=== PATIENT | female | born 1945 | race Caucasian/White ===

== ENCOUNTER → 2016-08-08 | Outpatient (CLI) | payer MEDICARE ==
--- NOTE | 2016-08-08 13:00 | REP ---
PELVIC ULTRASOUND: Real-time sonographic evaluation of the pelvis is performed utilizing transabdominal and endovaginal technique. The bladder measuring 11.5 x 4.9 x 9.8 cm. The uterus measures 8.3 x 4.3 x 6.2 cm. Endometrial thickness is 12 mm. This is thickened in a patient postmenopausal. The right ovary is not visualized. In the left adnexa, there is a complex mass measuring 6.3 x 4.7 x 4.6 cm compatible with dermoid as seen on prior CT of 01/01/2014. There is no evidence of torsion. No free fluid is seen. There is a 5 mm hypoechoic nodular area in the endometrium which could represent a submucosal fibroid or polyp. IMPRESSION: Thickened endometrium. The patient is postmenopausal and therefore endometrial sampling is recommended to evaluate for possible endometrial neoplasm. 5 mm hypoechoic nodule in the endometrium may represent a fibroid or polyp. Complex left adnexal mass compatible with dermoid as seen on prior CT of 01/01/2014. Signed by Wesley Heredia MD 08/08/2016 04:16 P
== END ==
LOC: M RAD 10:42
PROVIDERS: ATTEND Nurse Practitioner Family
DX: D27.9 Benign neoplasm of unspecified ovary (principal); Z80.0 Family history of malignant neoplasm of digestive organs

== ENCOUNTER → 2016-11-07 | Outpatient (REF) | payer MEDICARE ==
[2016-11-07 12:23] LABS: ALBUMIN 3.2 GM/DL (3.2-5.2); ALBUMIN/GLOBULIN RATIO 1.03 (1.00-1.93); ALKALINE PHOSPHATASE 91 U/L (45-117); ALT/SGPT 21 U/L (12-78); ANION GAP 7 MEQ/L (8-16); AST/SGOT 11 U/L (15-37); BILIRUBIN,TOTAL 0.4 MG/DL (0.2-1.0); BLOOD UREA NITROGEN 21 MG/DL (7-18); CALCIUM LEVEL 8.6 MG/DL (8.8-10.2); CARBON DIOXIDE LEVEL 27 MEQ/L (21-32); CHLORIDE LEVEL 108 MEQ/L (98-107); CHOLESTEROL LEVEL 191 MG/DL (<200); CREATININE FOR GFR 0.91 MG/DL (0.55-1.02); GLOMERULAR FILTRATION RATE > 60.0 (>39); GLUCOSE, FASTING 90 MG/DL (83-110); POTASSIUM SERUM 4.1 MEQ/L (3.5-5.1); SODIUM LEVEL 142 MEQ/L (136-145); TOTAL PROTEIN 6.3 GM/DL (6.4-8.2); TRIGLYCERIDES LEVEL 121 MG/DL (<150)
[2016-11-09 00:06] LABS: Lyme Disease IgG/IgM Antibodie <0.91 ISR (0.00-0.90); Lyme Disease IgM Ab Quantitati <0.80 index (0.00-0.79)
== END ==
LOC: M SFHCCLAY 07:50
PROVIDERS: ATTEND Family Medicine
DX: Z00.00 Encounter for general adult medical examination without abnormal findings (principal); Z79.899 Other long term (current) drug therapy

== ENCOUNTER → 2017-01-17 | Outpatient (REF) | payer MEDICARE ==
[~2017-01-17] MED LIST: CLEO300C2 PO; SENN8.6C PO; VITA-115 PO
[2017-01-18 12:31] LABS: MEAN CORPUSCULAR HEMOGLOBIN 30.3 pg (27.0-33.0); MEAN CORPUSCULAR HGB CONC 33.5 g/dl (32.0-36.5); MEAN CORPUSCULAR VOLUME 90.3 fl (80.0-96.0); RED CELL DISTRIBUTION WIDTH 13.3 % (11.5-14.5); WHITE BLOOD COUNT 5.5 K/mm3 (4.0-10.0)
[2017-01-18 12:32] LABS: INR 0.91
== END ==
LOC: M SFHCCLAY 14:19
PROVIDERS: ATTEND Family Medicine
DX: Z01.818 Encounter for other preprocedural examination (principal); K42.9 Umbilical hernia without obstruction or gangrene

== ENCOUNTER 2017-01-27 07:54 | Day surgery (SDC) | payer MEDICARE ==
[~2017-01-27] VITALS: Ht 157.5 cm; Wt 97.5 kg
[~2017-01-27 07:54] MED LIST changes: -CLEO300C2 PO; -SENN8.6C PO
[2017-01-27] MEDS ORDERED: GLYCOPYRROLATE INJ 0.2 MG/ML 2 ML VIAL As Ordered ONE (08:13)
[2017-01-27] MEDS ORDERED: ROCURONIUM BROMIDE 50 MG/5 ML VIAL/SYRINGE As Ordered ONE (08:13)
[2017-01-27] MEDS ORDERED: ONDANSETRON 4MG/2ML VIAL (J2405) As Ordered ONE ×2 (08:13→14:29)
[2017-01-27] MEDS ORDERED: LIDOCAINE 2% INJ 100 MG/5 ML SDV (FOR ANES.) As Ordered ONE (08:13)
[2017-01-27] MEDS ORDERED: PROPOFOL 200 MG/20 ML VIAL As Ordered ONE (08:13)
[2017-01-27] MEDS ORDERED: NEOSTIGMINE 1MG/ML 5 ML SYRINGE (J2710) As Ordered ONE (08:13)
[2017-01-27] MEDS ORDERED: MIDAZOLAM INJ 2 MG/2 ML VIAL (J2250) As Ordered ONE (08:14)
[2017-01-27] MEDS ORDERED: fentaNYL 100 MCG/2 ML INJECTION (J3010) As Ordered ONE (08:14)
[2017-01-27] MEDS ORDERED: LIDOCAINE 1% MDV 20ML VIAL SC PRN (08:30)
[2017-01-27] MEDS ORDERED: CLINDAMYCIN 600 MG in APPROPRIATE DILUENT 1 EA IV ONE (08:30)
[2017-01-27] MEDS ORDERED: LR 1,000 ML IV ONE (08:30)
[2017-01-27] MEDS ORDERED: HYDROmorphone HCL 2 MG/ML 1ML VIAL (J1170) As Ordered ONE (08:36)
[2017-01-27] MEDS ORDERED: BUPIVACAINE/EPIN 0.25% 30 ML VIAL As Ordered ONE (08:39)
[2017-01-27] MEDS ORDERED: dexameTHASONE 4 MG/ML 1ML VIAL (J1100) As Ordered ONE (11:34)
[2017-01-27] MEDS ORDERED: PERCOCET 5MG/325MG TAB PO PRN (13:00)
[2017-01-27] MEDS ORDERED: diphenhydrAMINE INJ 50MG/ML VIAL (J1200) IV PRN (13:00)
[2017-01-27] MEDS ORDERED: MEPERIDINE INJ 25 MG/ML VIAL (J2175) IV PRN (13:00)
[2017-01-27] MEDS ORDERED: LR 1,000 ML IV SCH (13:00)
[2017-01-27] MEDS ORDERED: fentaNYL 100 MCG/2 ML INJECTION (J3010) IV PRN (13:00)
[2017-01-27] MEDS ORDERED: ONDANSETRON 4MG/2ML VIAL (J2405) IV PRN (13:00)
[2017-01-27] MEDS ORDERED: NORCO, ANEXSIA 5/325MG TABLET (HYDROcodone/ACETAMINOPHEN) PO PRN (13:00)
[2017-01-27] MEDS ORDERED: IBUPROFEN 600 MG TAB As Ordered ONE (14:13)
[2017-01-27] MEDS ORDERED: IBUPROFEN 600 MG TAB PO ONE (14:30)
[2017-01-27 17:30] VITALS: BP 139/71
--- NOTE | 2017-01-30 19:23 | RO ---
DATE OF PROCEDURE: 01/27/2017 PREOPERATIVE DIAGNOSIS: Incarcerated incisional hernia. POSTOPERATIVE DIAGNOSIS: Incarcerated incisional hernia. PROCEDURE: Robotic-assisted incarcerated incisional hernia repair with mesh. SURGEON: Dr. Wesley Chaney [employer]IE[employer]: Dr. Yang ANESTHESIA: General: ESTIMATED BLOOD LOSS: 10 mL. COMPLICATIONS: None. INDICATIONS FOR PROCEDURE: The patient is a 71-year-old female who presents status post cholecystectomy with a large bulge just lateral to her umbilicus that is getting larger and more tender for her and it is unable to be reduced. She did have an outpatient CT scan confirming that there is a hernia there. She also was told by her OB who did an oophorectomy in September of this year that she had a large hernia. Because of this, recommendation was to proceed with a robotic, possible open incarcerated incisional hernia repair. Risks and benefits of the procedure not limited to but including bleeding, infection, hernia formation, hernia recurrence, damage to surrounding structures and need for further surgery were discussed in detail with the patient. Informed consent was obtained and procedure was planned. DESCRIPTION OF PROCEDURE: The patient was brought back to operating room seven after sufficient sedation and the abdomen was sterilely prepped and draped. Next, a time-out was done to confirm proper patient, proper procedure. Following that, a 12 mm incision was made in the left upper quadrant, Veress needle was inserted and the abdomen was insufflated to 15 mmHg. Next, a 12 mm Optiview port was used to gain access to the abdomen. Once the abdomen was entered, the large hernia was clearly visible, being much larger than it appeared on CT scan. Two more 8 mm ports were then placed in the left lower quadrant and left midabdomen. Following that, the robot was docked, the omentum and adhesions to the hernia sac were carefully taken down using cautery. There were some adhesions to her upper midline incision from her recent oophorectomy procedure. These were easily taken down with electrocautery. The large defect periumbilically was carefully dissected free as well as a large defect within this original defect just lateral to the umbilicus that was likely the incisional component of this. It appeared that she had about a 5 x 8 cm diastasis around the umbilicus with another 3 cm much larger defect within this. Once all of this had been reduced, the hernia sac was carefully dissected out using the robot and removed through the 12 mm port site. Once all of this had been completed, the defect was measured intraperitoneally using a ruler and it was about 8-1/2 x 5 cm. Because of that, we use the 15 cm round mesh to cover this. A barbed suture was used to approximate this defect primarily. This was done by lowering the intra-abdominal pressure and the defect was able to be approximated easily without too much tension. Once this was completed, then the mesh was placed. Mesh was sutured in place about 180 degrees using barbed suture. Because of robot positioning, I was unable to suture the mesh on the left side of the abdomen because of the ports. So, once half the mesh had been sutured in place, the robot was undocked using SecureStrap tacker, the rest of the mesh was tacked in place laparoscopically, another 5 mm port was placed in the right midabdomen to be able to reach the rest of the mesh on the left side that could not be completed from the left side. Once all the mesh was completely secured in place, the abdomen was desufflated. Skin incisions were closed with #4-0 Vicryl subcuticular sutures. The abdomen was cleaned and dried. Steri-Strips, 4 x 4 and tape were applied thus ending procedure.
== END 2017-01-27 18:00 | disposition home or self-care (01) ==
LOC: M SDC 07:54
PROVIDERS: ATTEND Surgery
DX: K43.0 Incisional hernia with obstruction, without gangrene (principal); E78.00 Pure hypercholesterolemia, unspecified; M17.0 Bilateral primary osteoarthritis of knee; E66.9 Obesity, unspecified; Z88.0 Allergy status to penicillin; Z88.2 Allergy status to sulfonamides
CPT/HCPCS: 49655; 88302; C1781; J1100; J1170; J2250; J2405; J2710; J3010

== ENCOUNTER 2017-02-02 20:13 | Emergency (ER) | payer MEDICARE ==
[~2017-02-02] VITALS: Ht 162.6 cm; Wt 98.1 kg
[2017-02-02] MEDS ORDERED: SENN8.6C PO (20:40)
[2017-02-02] MEDS ORDERED: DERMABOND TOPICAL SKIN ADHESIVE TOP ONE (21:15)
[2017-02-02 23:09] VITALS: BP 135/63
--- NOTE | 2017-02-03 14:30 | REP ---
Clinical: Postoperative abdominal pain and erythema. Technique: Real time montanez scale and color evaluation using linear high frequency and curved array transducers. Findings: Directed transabdominal ultrasound at the surgical incision site demonstrates a complex avascular collection measuring 6.9 x 6.0 x 8.2 cm most compatible with hematoma and less likely phlegmon/forming abscess. Impression: Complex collection at the surgical incision site most compatible with hematoma. Differential diagnosis includes forming phlegmon. Signed by Nathanael Almeida MD 02/02/2017 10:24 P
== END 2017-02-02 23:10 | disposition home or self-care (01) ==
LOC: M ED 20:13
DX: L76.22 Postprocedural hemorrhage of skin and subcutaneous tissue following other procedure (principal); Z88.0 Allergy status to penicillin; Z88.2 Allergy status to sulfonamides

== ENCOUNTER 2017-02-04 08:39 | Emergency (ER) | payer MEDICARE ==
[~2017-02-04] VITALS: Ht 162.6 cm; Wt 216.0 kg
[~2017-02-04 08:39] MED LIST changes: +SENN8.6C PO
[2017-02-04 10:00] LABS: BASO % 0.4 % (0.0-1.0); EOS # 0.5 K/mm3 (0.0-0.50); EOS % 4.6 % (0.0-3.0); LARGE UNSTAINED CELL # 0.1 K/mm3 (0.0-0.4); LARGE UNSTAINED CELL % 1.3 % (0.0-4.0); LYMPH # 1.4 K/mm3 (1.5-4.5); LYMPH % 12.1 % (24.0-44.0); MEAN CORPUSCULAR HEMOGLOBIN 29.3 pg (27.0-33.0); MEAN CORPUSCULAR HGB CONC 33.1 g/dl (32.0-36.5); MEAN CORPUSCULAR VOLUME 88.7 fl (80.0-96.0); MONO # 0.7 K/mm3 (0.0-0.8); MONO % 6.5 % (0.0-5.0); NEUTROPHILS % 75.1 % (36.0-66.0); PLATELET COUNT, AUTOMATED 310 k/mm3 (150-450); RED CELL DISTRIBUTION WIDTH 13.3 % (11.5-14.5); WHITE BLOOD COUNT 10.7 K/mm3 (4.0-10.0)
[2017-02-04 10:13] LABS: INR 1.01
[2017-02-04 10:20] LABS: ANION GAP 8 MEQ/L (8-16); BLOOD UREA NITROGEN 16 MG/DL (7-18); CALCIUM LEVEL 8.9 MG/DL (8.8-10.2); CARBON DIOXIDE LEVEL 28 MEQ/L (21-32); CHLORIDE LEVEL 105 MEQ/L (98-107); CREATININE FOR GFR 0.92 MG/DL (0.55-1.02); GLOMERULAR FILTRATION RATE > 60.0 (>39); GLUCOSE, FASTING 96 MG/DL (83-110); POTASSIUM SERUM 4.2 MEQ/L (3.5-5.1); SODIUM LEVEL 141 MEQ/L (136-145)
[2017-02-04] MEDS ORDERED: CLINDAMYCIN 600 MG in APPROPRIATE DILUENT 1 EA IV ONE (11:30)
[2017-02-04 12:07] VITALS: BP 112/65
[2017-02-04] MEDS ORDERED: CLEO300C2 PO (12:30)
== END 2017-02-04 12:43 | disposition home or self-care (01) ==
LOC: M ED 08:39
DX: L76.34 Postprocedural seroma of skin and subcutaneous tissue following other procedure (principal)

== ENCOUNTER → 2017-12-08 | Outpatient (REF) | payer MEDICARE ==
[2017-12-08 13:04] LABS: ALBUMIN 3.2 GM/DL (3.2-5.2); ALBUMIN/GLOBULIN RATIO 0.89 (1.00-1.93); ALKALINE PHOSPHATASE 87 U/L (45-117); ALT/SGPT 16 U/L (12-78); ANION GAP 7 MEQ/L (8-16); AST/SGOT 10 U/L (7-37); BILIRUBIN,TOTAL 0.4 MG/DL (0.2-1.0); BLOOD UREA NITROGEN 24 MG/DL (7-18); CALCIUM LEVEL 8.5 MG/DL (8.8-10.2); CARBON DIOXIDE LEVEL 27 MEQ/L (21-32); CHLORIDE LEVEL 106 MEQ/L (98-107); CHOLESTEROL LEVEL 174 MG/DL (<200); CREATININE FOR GFR 1.07 MG/DL (0.55-1.30); GLOMERULAR FILTRATION RATE 53.8 (>39); GLUCOSE, FASTING 87 MG/DL (70-100); HDL CHOLESTEROL 58 MG/DL (>40); LDL CHOLESTEROL 91.2 MG/DL (<100); NON-HDL-C 116 MG/DL; POTASSIUM SERUM 4.1 MEQ/L (3.5-5.1); SODIUM LEVEL 140 MEQ/L (136-145); TOTAL PROTEIN 6.8 GM/DL (6.4-8.2); TRIGLYCERIDES LEVEL 124 MG/DL (<150)
[2017-12-08 14:35] LABS: TOTAL 25(OH) VITAMIN D 39.1 NG/ML (30.0-100.0)
[2017-12-10 00:07] LABS: Lyme Disease IgG/IgM Antibodie <0.91 ISR (0.00-0.90); Lyme Disease IgM Ab Quantitati <0.80 index (0.00-0.79)
== END ==
LOC: M SFHCCLAY 07:37
DX: Z00.00 Encounter for general adult medical examination without abnormal findings (principal); E78.00 Pure hypercholesterolemia, unspecified; E07.9 Disorder of thyroid, unspecified
CPT/HCPCS: 84443

== ENCOUNTER → 2017-12-25 | Outpatient (CLI) | payer MEDICARE ==
[~2017-12-25] MED LIST changes: +GASTROGRAFIN SOLUTION 30ML (Q9963) As Ordered; +ISOVUE-370 76% 100ML VIAL (Q9967) As Ordered; -SENN8.6C PO; -VITA-115 PO
== END ==
LOC: M RAD 16:06
DX: Z48.817 Encounter for surgical aftercare following surgery on the skin and subcutaneous tissue (principal); K91.873 Postprocedural seroma of a digestive system organ or structure following other procedure
CPT/HCPCS: Q9963

== ENCOUNTER 2018-02-16 10:43 | Day surgery (SDC) | payer MEDICARE ==
[~2018-02-16 10:43] MED LIST changes: +CLINDAMYCIN 600 MG in APPROPRIATE DILUENT 1 EA IV; -GASTROGRAFIN SOLUTION 30ML (Q9963) As Ordered; -ISOVUE-370 76% 100ML VIAL (Q9967) As Ordered
[2018-02-16] MEDS: LR 1,000 ML IV (11:25)
[2018-02-16] MEDS ORDERED: BUPIVACAINE/EPIN 0.25% 30 ML VIAL As Ordered (12:16)
[2018-02-16] MEDS: CLINDAMYCIN 600 MG in APPROPRIATE DILUENT 1 EA IV (12:30)
[2018-02-16] MEDS ORDERED: dexameTHASONE 4 MG/ML 1ML VIAL (J1100) As Ordered (12:51)
[2018-02-16] MEDS ORDERED: PROPOFOL 200 MG/20 ML VIAL As Ordered (12:51)
[2018-02-16] MEDS ORDERED: ONDANSETRON 4MG/2ML VIAL (J2405) As Ordered (12:51)
[2018-02-16] MEDS ORDERED: GLYCOPYRROLATE INJ 0.2 MG/ML 2 ML VIAL As Ordered (12:51)
[2018-02-16] MEDS ORDERED: NEOSTIGMINE 10 MG/10 ML VIAL (J2710) As Ordered (12:51)
[2018-02-16] MEDS ORDERED: LIDOCAINE 2% INJ 100 MG/5 ML SDV (FOR ANES.) As Ordered (12:51)
[2018-02-16] MEDS ORDERED: MIDAZOLAM INJ 2 MG/2 ML VIAL (J2250) As Ordered (12:51)
[2018-02-16] MEDS ORDERED: METOCLOPRAMIDE INJ 10MG/2ML VIAL (J2765) As Ordered (12:51)
[2018-02-16] MEDS ORDERED: ROCURONIUM BROMIDE 50 MG/5 ML VIAL As Ordered (12:52)
[2018-02-16] MEDS ORDERED: fentaNYL 250 MCG/5 ML INJECTION (J3010) As Ordered (12:52)
[2018-02-16] MEDS ORDERED: ONDANSETRON 4MG/2ML VIAL (J2405) IV (14:45)
[2018-02-16] MEDS ORDERED: LR 1,000 ML IV (14:45)
[2018-02-16] MEDS ORDERED: NORCO, ANEXSIA 5/325MG TABLET (HYDROcodone/ACETAMINOPHEN) PO ×2 (14:45)
[2018-02-16] MEDS ORDERED: fentaNYL 100 MCG/2 ML INJECTION (J3010) IV (14:45)
[2018-02-16] MEDS ORDERED: ACETAMINOPHEN TAB 650MG DOSE (2X325MG) As Ordered (14:50)
[2018-02-16] MEDS: ACETAMINOPHEN TAB 650MG DOSE (2X325MG) PO (14:50)
== END 2018-02-16 16:25 | disposition home or self-care (01) ==
LOC: M SDC 10:43
DX: T81.4XXA Infection following a procedure, initial encounter (principal); X58.XXXA Exposure to other specified factors, initial encounter; Y93.89 Activity, other specified; Y92.89 Other specified places as the place of occurrence of the external cause; Y99.8 Other external cause status; Z88.0 Allergy status to penicillin; Z88.2 Allergy status to sulfonamides; Z91.048 Other nonmedicinal substance allergy status
CPT/HCPCS: 11043

== ENCOUNTER → 2018-03-19 | Outpatient (CLI) | payer MEDICARE | LOC: M RAD 07:05 | DX: T81.44XD Sepsis following a procedure, subsequent encounter (principal) | CPT/HCPCS: 76705 ==

== ENCOUNTER → 2018-12-03 | Outpatient (REF) | payer MEDICARE ==
[~2018-12-03] MED LIST changes: +CLEO300C2 PO; -CLINDAMYCIN 600 MG in APPROPRIATE DILUENT 1 EA IV; +SENN8.6C PO; +VITA-115 PO
[2018-12-03 11:48] LABS: HEMATOCRIT 37.1 % (36.0-47.0); HEMOGLOBIN 11.8 g/dl (12.0-15.5); MEAN CORPUSCULAR HEMOGLOBIN 28.6 pg (27.0-33.0); MEAN CORPUSCULAR HGB CONC 31.8 g/dl (32.0-36.5); PLATELET COUNT, AUTOMATED 239 10^3/uL (150-450); RED BLOOD COUNT 4.12 10^6/uL (4.00-5.40); WHITE BLOOD COUNT 5.5 10^3/uL (4.0-10.0)
[2018-12-03 12:21] LABS: ALT/SGPT 17 U/L (12-78); BILIRUBIN,TOTAL 0.3 MG/DL (0.2-1.0); BLOOD UREA NITROGEN 20 MG/DL (7-18); CALCIUM LEVEL 8.8 MG/DL (8.8-10.2); CARBON DIOXIDE LEVEL 28 MEQ/L (21-32); CHLORIDE LEVEL 109 MEQ/L (98-107); CHOLESTEROL LEVEL 169 MG/DL (<200); CHOLESTEROL RISK RATIO 3.072 (<5); CREATININE FOR GFR 0.92 MG/DL (0.55-1.30); GLOMERULAR FILTRATION RATE > 60.0 (>39); GLUCOSE, FASTING 87 MG/DL (70-100); HDL CHOLESTEROL 55 MG/DL (>40); LDL CHOLESTEROL 86 MG/DL (<100); NON-HDL-C 114 MG/DL; POTASSIUM SERUM 4.2 MEQ/L (3.5-5.1); SODIUM LEVEL 141 MEQ/L (136-145); TOTAL PROTEIN 6.6 GM/DL (6.4-8.2); TRIGLYCERIDES LEVEL 140 MG/DL (<150)
[2018-12-05 00:09] LABS: Lyme Disease IgG/IgM Antibodie <0.91 ISR (0.00-0.90); Lyme Disease IgM Ab Quantitati <0.80 index (0.00-0.79)
== END ==
LOC: M SFHCCLAY 08:28
PROVIDERS: ATTEND Nurse Practitioner Family
DX: B35.1 Tinea unguium (principal); E66.01 Morbid (severe) obesity due to excess calories; Z11.9 Encounter for screening for infectious and parasitic diseases, unspecified; E55.9 Vitamin D deficiency, unspecified

== ENCOUNTER → 2019-01-07 | Outpatient (REF) | payer MEDICARE ==
[2019-01-07 13:28] LABS: BLOOD UREA NITROGEN 18 MG/DL (7-18); CREATININE FOR GFR 0.89 MG/DL (0.55-1.30); GLOMERULAR FILTRATION RATE > 60.0 (>39)
== END ==
LOC: M LABDRAWC 12:53
PROVIDERS: ATTEND Surgery
DX: Z01.812 Encounter for preprocedural laboratory examination (principal)

== ENCOUNTER → 2019-01-09 | Outpatient (CLI) | payer MEDICARE ==
[~2019-01-09] MED LIST changes: +GASTROGRAFIN SOLUTION 30ML (Q9963) As Ordered ONE; +ISOVUE-370 76% 100ML VIAL (Q9967) As Ordered ONE
--- NOTE | 2019-01-10 08:39 | REP ---
REASON: Assess for incisional hernia. COMPARISON EXAMINATION: 12/25/2017. CONTRAST: 100 mL [id number]. In the lung bases there is a nodule on the right which is stable. The liver and spleen are within normal limits. The pancreas and adrenals glands are within normal limits and unchanged. There are bilateral renal cysts status quo within normal limits and unchanged. There is a very large ventral hernia which represents a change from the prior exam and through which not only mesentery but multiple small bowel loops reside. There is a small amount of fluid in the leaves of the small bowel mesentery contained within the ventral hernia. There is no evidence of intestinal obstruction or ischemia. CT PELVIS: The pelvic bowel loops are unremarkable. There is no free fluid or free air in the pelvis. There is no pelvic mass or adenopathy. There are bilateral pelvic phleboliths status quo. The osseous structures are unchanged. IMPRESSION: Large and in fact huge ventral hernia as described above. There is no evidence of a obstruction of abnormal bowel wall thickening, however there is a small amount of fluid seen within the leaves of the contained mesentery. This needs to be correlated clinically with appropriate followup. Electronically Signed by Lane Samuel DO 01/10/2019 11:21 A
== END ==
LOC: M RAD 15:20
PROVIDERS: ATTEND Surgery
DX: K43.2 Incisional hernia without obstruction or gangrene (principal)
CPT/HCPCS: 74177; Q9963; Q9967

== ENCOUNTER → 2020-01-16 | Outpatient (REF) | payer MEDICARE ==
[~2020-01-16] MED LIST changes: -GASTROGRAFIN SOLUTION 30ML (Q9963) As Ordered ONE; -ISOVUE-370 76% 100ML VIAL (Q9967) As Ordered ONE
[2020-02-20 07:07] LABS: HEMATOCRIT 37.7 % (36.0-47.0); HEMOGLOBIN 11.7 g/dl (12.0-15.5); MEAN CORPUSCULAR HEMOGLOBIN 28.3 pg (27.0-33.0); MEAN CORPUSCULAR VOLUME 91.1 fl (80.0-96.0); PLATELET COUNT, AUTOMATED 267 10^3/uL (150-450); RED BLOOD COUNT 4.14 10^6/uL (4.00-5.40)
[2020-03-02 11:03] LABS: CALCIUM LEVEL 8.7 MG/DL (8.8-10.2); CREATININE FOR GFR 1.03 MG/DL (0.55-1.30); GLOMERULAR FILTRATION RATE 55.9 (>39); POTASSIUM SERUM 4.2 MEQ/L (3.5-5.1)
[2020-03-02 11:04] LABS: ALBUMIN 3.1 GM/DL (3.2-5.2); BILIRUBIN,TOTAL 0.3 MG/DL (0.2-1.0); CHOLESTEROL RISK RATIO 3.74 (<5); TOTAL 25(OH) VITAMIN D 44.7 NG/ML (30.0-100.0); TOTAL PROTEIN 6.8 GM/DL (6.4-8.2)
== END ==
LOC: M SFHCCLAY 09:41
PROVIDERS: ATTEND Nurse Practitioner Family
DX: I10 Essential (primary) hypertension (principal); E78.5 Hyperlipidemia, unspecified; E55.9 Vitamin D deficiency, unspecified; Z79.899 Other long term (current) drug therapy

== ENCOUNTER → 2021-01-04 | Outpatient (REF) | payer MEDICARE ==
[2021-01-04 11:36] LABS: HEMOGLOBIN 12.2 g/dl (12.0-15.5); MEAN CORPUSCULAR HEMOGLOBIN 28.8 pg (27.0-33.0); MEAN CORPUSCULAR HGB CONC 31.3 g/dl (32.0-36.5); PLATELET COUNT, AUTOMATED 238 10^3/uL (150-450); RED BLOOD COUNT 4.24 10^6/uL (4.00-5.40); WHITE BLOOD COUNT 6.5 10^3/uL (4.0-10.0)
[2021-01-04 12:10] LABS: ALBUMIN 3.3 GM/DL (3.2-5.2); ALT/SGPT 19 U/L (12-78); BILIRUBIN,TOTAL 0.3 MG/DL (0.2-1.0); BLOOD UREA NITROGEN 21 MG/DL (7-18); CALCIUM LEVEL 9.2 MG/DL (8.8-10.2); CARBON DIOXIDE LEVEL 30 MEQ/L (21-32); CHLORIDE LEVEL 109 MEQ/L (98-107); CHOLESTEROL LEVEL 199 MG/DL (<200); CHOLESTEROL RISK RATIO 3.618 (<5); GLOMERULAR FILTRATION RATE > 60.0 (>39); GLUCOSE, FASTING 81 MG/DL (70-100); HDL CHOLESTEROL 55 MG/DL (>40); LDL CHOLESTEROL 112 MG/DL (<100); NON-HDL-C 144 MG/DL; POTASSIUM SERUM 4.7 MEQ/L (3.5-5.1); SODIUM LEVEL 142 MEQ/L (136-145); TRIGLYCERIDES LEVEL 158 MG/DL (<150)
[2021-01-04 12:16] LABS: TOTAL 25(OH) VITAMIN D 49.6 NG/ML (30.0-100.0)
[2021-01-05 13:10] LABS: Lyme Disease IgG/IgM Antibodie <0.91 ISR (0.00-0.90); Lyme Disease IgM Ab Quantitati <0.80 index (0.00-0.79)
== END ==
LOC: M SFHCCLAY 09:04
PROVIDERS: ATTEND Family Medicine
DX: E55.9 Vitamin D deficiency, unspecified (principal); Z13.0 Encounter for screening for diseases of the blood and blood-forming organs and certain disorders involving the immune mechanism; E66.01 Morbid (severe) obesity due to excess calories; Z13.6 Encounter for screening for cardiovascular disorders; R21 Rash and other nonspecific skin eruption

== ENCOUNTER → 2021-07-12 | Outpatient (REF) | payer MEDICARE ==
[2021-07-12 13:18] LABS: BLOOD UREA NITROGEN 20 MG/DL (7-18); CALCIUM LEVEL 9.3 MG/DL (8.8-10.2); CARBON DIOXIDE LEVEL 29 MEQ/L (21-32); CHLORIDE LEVEL 106 MEQ/L (98-107); GLOMERULAR FILTRATION RATE > 60.0 (>39); GLUCOSE, FASTING 83 MG/DL (70-100); POTASSIUM SERUM 4.9 MEQ/L (3.5-5.1); SODIUM LEVEL 141 MEQ/L (136-145)
[2021-07-12 15:26] LABS: TOTAL 25(OH) VITAMIN D 51.3 NG/ML (30.0-100.0)
== END ==
LOC: M SFHCCLAY 09:26
PROVIDERS: ATTEND Family Medicine
DX: E55.9 Vitamin D deficiency, unspecified (principal)

== ENCOUNTER → 2022-07-13 | Outpatient (REF) | payer MEDICARE ==
[2022-07-13 18:14] LABS: HEMATOCRIT 40.9 % (36.0-47.0); MEAN CORPUSCULAR HEMOGLOBIN 29.2 pg (27.0-33.0); MEAN CORPUSCULAR HGB CONC 31.8 g/dl (32.0-36.5); MEAN CORPUSCULAR VOLUME 91.9 fl (80.0-96.0); PLATELET COUNT, AUTOMATED 239 10^3/uL (150-450); RED BLOOD COUNT 4.45 10^6/uL (4.00-5.40); WHITE BLOOD COUNT 6.1 10^3/uL (4.0-10.0)
[2022-07-13 18:45] LABS: ALBUMIN 3.3 G/DL (3.2-5.2); ALKALINE PHOSPHATASE 94 U/L (46-116); ALT/SGPT 14 U/L (7.0-40); AST/SGOT 17 U/L (<34); BILIRUBIN,TOTAL 0.6 MG/DL (0.3-1.2); BLOOD UREA NITROGEN 23 MG/DL (9-23); CALCIUM LEVEL 9.6 MG/DL (8.3-10.6); CARBON DIOXIDE LEVEL 30 MMOL/L (20-31); CHLORIDE LEVEL 104 MMOL/L (98-107); CHOLESTEROL LEVEL 204 MG/DL (<200); CHOLESTEROL RISK RATIO 3.71 (<5); CREATININE FOR GFR 0.89 MG/DL (0.55-1.30); GLOMERULAR FILTRATION RATE > 60.0 (>39); GLUCOSE, FASTING 88 MG/DL (74-106); HDL CHOLESTEROL 54.9 MG/DL (>40); LDL CHOLESTEROL 123.3 MG/DL (<100); NON-HDL-C 149 MG/DL; POTASSIUM SERUM 4.9 MMOL/L (3.5-5.1); SODIUM LEVEL 141 MMOL/L (136-145); TOTAL 25(OH) VITAMIN D 62.7 NG/ML (20.0-100.0); TOTAL PROTEIN 6.7 G/DL (5.7-8.2); TRIGLYCERIDES LEVEL 129 MG/DL (<150)
== END ==
LOC: M SFHCCLAY 09:48
PROVIDERS: ATTEND Nurse Practitioner Family
DX: Z13.1 Encounter for screening for diabetes mellitus (principal); Z11.9 Encounter for screening for infectious and parasitic diseases, unspecified; E55.9 Vitamin D deficiency, unspecified; E66.01 Morbid (severe) obesity due to excess calories

== ENCOUNTER → 2023-07-13 | Outpatient (REF) | payer MEDICARE ==
[2023-07-13 13:05] LABS: HEMOGLOBIN A1c 5.4 % (4.0-6.0)
[2023-07-13 13:33] LABS: BLOOD UREA NITROGEN 21 MG/DL (9-23); CARBON DIOXIDE LEVEL 29 MMOL/L (20-31); CHLORIDE LEVEL 110 MMOL/L (98-107); CHOLESTEROL LEVEL 186 MG/DL (<200); CHOLESTEROL RISK RATIO 3.31 (<5); CREATININE FOR GFR 0.91 MG/DL (0.55-1.30); GLOMERULAR FILTRATION RATE > 60.0 (>39); GLUCOSE, FASTING 91 MG/DL (74-106); HDL CHOLESTEROL 56.1 MG/DL (>40); LDL CHOLESTEROL 111.1 MG/DL (<100); NON-HDL-C 129.9 MG/DL; POTASSIUM SERUM 4.5 MMOL/L (3.5-5.1); SODIUM LEVEL 142 MMOL/L (136-145); TRIGLYCERIDES LEVEL 94 MG/DL (<150)
[2023-07-13 13:36] LABS: TOTAL 25(OH) VITAMIN D 54.9 NG/ML (20.0-100.0)
== END ==
LOC: M SFHCCLAY 08:11
PROVIDERS: ATTEND Nurse Practitioner Family
DX: E78.5 Hyperlipidemia, unspecified (principal); E55.9 Vitamin D deficiency, unspecified; Z11.9 Encounter for screening for infectious and parasitic diseases, unspecified; Z13.1 Encounter for screening for diabetes mellitus

== ENCOUNTER → 2024-07-22 | Outpatient (REF) | payer MEDICARE ==
[2024-07-22 14:28] LABS: HEMOGLOBIN A1c 5.3 % (4.0-6.0)
[2024-07-22 14:44] LABS: ALBUMIN 3.2 G/DL (3.2-5.2); ALKALINE PHOSPHATASE 90 U/L (35-104); ALT/SGPT 13 U/L (7.0-40); AST/SGOT 12 U/L (<34); BILIRUBIN,TOTAL 0.5 MG/DL (0.3-1.2); BLOOD UREA NITROGEN 19 MG/DL (9-23); CALCIUM LEVEL 9.4 MG/DL (8.3-10.6); CARBON DIOXIDE LEVEL 27 MMOL/L (20-31); CHLORIDE LEVEL 108 MMOL/L (98-107); CHOLESTEROL LEVEL 201 MG/DL (<200); CHOLESTEROL RISK RATIO 3.36 (<5); CREATININE FOR GFR 0.79 MG/DL (0.55-1.30); GLOMERULAR FILTRATION RATE > 60.0 (>39); GLUCOSE, FASTING 90 MG/DL (74-106); HDL CHOLESTEROL 59.7 MG/DL (>40); LDL CHOLESTEROL 112.5 MG/DL (<100); NON-HDL-C 141.3 MG/DL; POTASSIUM SERUM 4.2 MMOL/L (3.5-5.1); SODIUM LEVEL 144 MMOL/L (136-145); TRIGLYCERIDES LEVEL 144 MG/DL (<150)
[2024-07-22 14:45] LABS: TOTAL 25(OH) VITAMIN D 51.2 NG/ML (20.0-100.0)
[2024-07-25 15:02] LABS: LYME TOTAL ANTIBODY CIA <= 0.90 Index (<=0.90)
== END ==
LOC: M SFHCCLAY 08:48
PROVIDERS: ATTEND Nurse Practitioner Family
DX: Z00.00 Encounter for general adult medical examination without abnormal findings (principal); E55.9 Vitamin D deficiency, unspecified; E78.5 Hyperlipidemia, unspecified; Z11.9 Encounter for screening for infectious and parasitic diseases, unspecified; Z79.899 Other long term (current) drug therapy

== ENCOUNTER → 2025-05-23 | Outpatient (REF) | payer MEDICARE ==
[2025-05-27 14:17] LABS: HPV APTIMA Not Detected (Not Detected)
== END ==
LOC: M SFHCCLAY 10:40
PROVIDERS: ATTEND Nurse Practitioner Family
DX: N95.0 Postmenopausal bleeding (principal); Z12.4 Encounter for screening for malignant neoplasm of cervix